=== PATIENT | male | born 1960 | race Caucasian/White ===

== ENCOUNTER 2020-06-27 12:50 | Inpatient (IN) | payer OTHER, SELFPAY ==
[2020-06-27] MEDS ORDERED: NA CHLORIDE 0.9% 500 ML ONE ×2 (15:02→16:27)
[2020-06-27] MEDS ORDERED: TRAMADOL HCL 50 MG TAB ONE (15:37)
[2020-06-27 15:52] LABS: Basophils % 0.4 % (0-1.3); Lymphocytes % 8.4 % (15.3-44.8); MPV 8.9 fL (7.6-11.3); Protime INR 1.15; RBC Red Blood Cell Count 4.84 M/uL (4.33-5.43)
--- NOTE | 2020-06-27 15:56 | RAD REPORT ---
EXAM DESCRIPTION: RAD - Chest Single View - 06/27/2020 3:22 pm CLINICAL HISTORY: Abdominal and right flank pain, SOB COMPARISON: Two view chest April 2018 TECHNIQUE: AP portable chest image was obtained 06/27/2020 3:22 pm . FINDINGS: Lungs are clear of acute finding. Small granuloma left mid lung field similar to compariso n. Heart and vasculature are normal. No measurable pleural effusion and no pneumothorax. No acute bon y abnormality seen. No acute aortic findings suspected. IMPRESSION: No acute cardiopulmonary process. No significant interval change.
[2020-06-27 16:17] LABS: ALT/SGPT 54 U/L (12-78); AST/SGOT 27 U/L (15-37); Alkaline Phosphatase 102 U/L (45-117); BUN Blood Urea Nitrogen > 150 mg/dL (7-18); Bicarbonate 9 mmol/L (21-32); Bilirubin Direct 0.1 mg/dL (0-0.2); Bilirubin Total 0.3 mg/dL (0.2-1.0); Glucose Level 101 mg/dL (74-106); Magnesium 0.6 mg/dL (1.8-2.4); NT PRO-BNP 287 pg/mL (<125); Protein, Total 8.5 g/dL (6.4-8.2); Sodium Level 130 mmol/L (136-145); Troponin (Emerg Dept Use Only) < 0.02 ng/mL (0.0-0.045)
[2020-06-27 16:19] LABS: Potassium 5.7 mmol/L (3.5-5.1)
[2020-06-27] MEDS ORDERED: NA CHLORIDE 0.9% 1,000 ML ONE ×2 (16:47→21:48)
[2020-06-27] MEDS ORDERED: NA CHLORIDE 0.9% 250 ML ONE ×2 (16:48→22:03)
--- NOTE | 2020-06-27 17:18 | RAD REPORT ---
EXAM DESCRIPTION: CT - Chest Abd Pelvis Wo Con - 06/27/2020 4:48 pm CLINICAL HISTORY: Abdominal and right flank pain with SOB COMPARISON: Chest Single View dated 06/27/2020 TECHNIQUE: During dynamic enhancement using 100 milliliters nonionic IV contrast, axial 5 millimeter thick images of the chest, abdomen and pelvis were obtained. Biphasic technique was utilized through the abdomen. No oral contrast administered. All CT scans are performed using dose optimization technique as appropriate and may include automated exposure control or mA/KV adjustment according to patient size. FINDINGS: No dense consolidation or suspicious mass lesion identifiable. In the posterolateral right lung base there is a mild bronchiectasis pattern. There is opacification of the dilated bronchi. In the surrounding parenchyma there is patchy alveolar opacification. Bronchial wall thickening is seen. No similar findings elsewhere. No pneumothorax or pleural effusion. No chest wall mass or abnormal axillary lymphadenopathy seen. Mediastinal and hilar regions show no mass or lymphadenopathy. No si gnificant cardiac finding. The liver, spleen and pancreas show no significant findings. Gallbladder and biliary tree are normal . Symmetric renal function is seen with no hydronephrosis, mass or other significant finding. No adren al abnormalities. No urinary bladder abnormalities. No dilated bowel loops or focal ball bowel wall thickening. No free air, free fluid or inflammatory stranding. Sigmoid diverticulosis present without diverticulitis. Appendix is normal. No mass or bulk y lymphadenopathy. A small fat only umbilical hernia is present. Minimal fat only left inguinal herni a. No acute bone or vascular finding. Patient has a prominent facet joint degenerative change in the lo wer lumbar spine. IMPRESSION: Posterolateral right lung base bronchiectasis with bronchitis findings. There is some pa tchy airspace disease in the same region. Viral and early bacterial pneumonias would both be possible . CT abdomen and pelvis imaging shows no emergent finding.
[2020-06-27 17:56] LABS: Ferritin 772.5 ng/mL (26-388)
[2020-06-27 17:59] LABS: C-Reactive Protein < 2.90 mg/L (<3.00)
[2020-06-27] MEDS ORDERED: Calcium Chloride 13.6 mEq (=1 gm)/100 mL NS IV ONE ×2 (18:00)
[2020-06-27] MEDS ORDERED: Magnesium Sulfate 2gm IVPB 2 G/50 ML BAG IV ONE (18:05)
[2020-06-27] MEDS ORDERED: INSULIN -REGULAR HUMAN 50 UNIT/0.5 ML ML ONE (18:05)
[2020-06-27] MEDS ORDERED: D50W 25 GM/50 ML SYRINGE/VIAL IV ONE (18:07)
[2020-06-27] MEDS ORDERED: SODIUM BICARB 50 MEQ/50ML VIAL ONE (18:07)
--- NOTE | 2020-06-27 18:19 | P.HP ---
Certification for Inpatient Patient admitted to: Inpatient With expected LOS: >2 Midnights Patient will require the following post-hospital care: None Practitioner: I am a practitioner with admitting privileges, knowledge of patient current condition, hospital course, and medical plan of care. Services: Services provided to patient in accordance with Admission requirements found in Title 42 Section 412.3 of the Code of Federal Regulations Patient History Date of Service: 06/27/20 Primary Care Provider: Dr. Shaw Reason for admission: Right flank pain, fatigue History of Present Illness: 59-year-old male with history of hypertension. Patient presented with right flank pain. Patient also reports other symptoms i ncluding fatigue, chills, fever and tremors. Patient reports that he has been feeling ill since June 06. Since that time he has been feeling extremely tired. He reported a cough at that time. Some shortness of breath noted. Patient reports chronic diarrhea. Over the past several days he has been not taking good oral intake. Patient reports right flank pain that radiates to the right chest wall. As mentioned above shortness of breath noted. Patient came to the ER for further evaluation. In the ER patient was evaluated. Patient was hypotensive with a blood pressure of 82/66. He was afebrile. Oxygen saturations around 100%. On lab white count 12.3, hemoglobin 15.6. Platelet count 287. Sodium 130, potassium 5.7. BUN greater than 150. CO2 of 9. Creatinine 4.53. With a GFR of 13. D-dimer 257. INR 1.15. Troponin less than 0.02. Magnesium low at 0.6. Pro calcitonin pending. Lactic acid pending. BNP 287. CT scan revealed machine setter lateral right lung base bronchiectasis with bronchitis. Possible early viral versus bacterial pneumonia. Abdominal exam portion unremarkable. Patient was given IV sepsis bolus in the emergency room. Blood, urine, sputum cultures obtained. Patient admitted for further evaluation. When I saw the patient ER, patient appeared dehydrated. Patient appear septic at this time. Patient overall stable. Patient takes hydrochlorothiazide, lisin opril for blood pressure. Patient also smokes. Home medications list reviewed: Yes - Past Medical/Surgical History Diabetic: No -: Hypertension -: Right inguinal hernia repair Psychosocial/ Personal History: Patient is - Family History Family History: Reviewed- Non-Contributory - Social History Smoking Status: Light Tobacco smoker (1-9 cigarettes/day) Counseled patient to stop smoking for: less than 10 minutes Smoking therapy provided: No Patient receptive to therapy: No Alcohol use: Yes CD- Drugs: No Caffeine use: Yes Place of Residence: Home Review of Systems General: Fever, Chills, Weakness, Malaise, As per HPI Eyes: Unremarkable ENT: Unremarkable Respiratory: Shortness of Breath, Sputum, As per HPI Cardiovascular: As per HPI Gastrointestinal: Abdominal Pain, Diarrhea, As per HPI Genitourinary: Unremarkable Musculoskeletal: Unremarkable Integumentary: Unremarkable Neurological: As per HPI Lymphatics: Unremarkable Physical Examination - Physical Exam General: Alert, Oriented x3, Cooperative, Mild distress HEENT: Atraumatic, Other (Dry mucous membranes) Neck: Supple Respiratory: Diminished (Slightly diminished to the right base) Cardiovascular: Normal pulses, Regular rate/rhythm Gastrointestinal: Normal bowel sounds, Soft and benign, Non-distended, No tenderness, No masses, No rebound, No guarding Musculoskeletal: No erythema, No tenderness, No warmth Integumentary: No tenderness/swelling, No erythema, No warmth, No cyanosis Neurological: Normal speech, Normal strength at 5/5 x4 extr, Normal tone, Normal affect External genitalia: No edema - Studies Laboratory Data (last 24 hrs) 06/27/20 15:15: PT 13.5 H, INR 1.15 06/27/20 15:15: WBC 12.3 H, Hgb 15.6, Hct 47.0, Plt Count 287 06/27/20 15:15: Sodium 130 L, Potassium 5.7 H*, BUN > 150 H, Creatinine 4.53 H, Glucose 101, Magnesium 0.6 L*, Total Bilirubin 0.3, AST 27, ALT 54, Alkaline Phosphatase 102 Microbiology Data (last 24 hrs): 06/27/20 15:15 Nasopharnyx Coronavirus COVID-19 PCR - Final Assessment and Plan - Plan Impression: Shortness of breath, right flank pain, chills secondary to sepsis likely related to right lower lobe pneumonia complicated with acute renal failure Acute renal failure likely volume depletion related to sepsis and medication- lisinopril/hydrochlorothiazide History of hypertension Plan: Patient we admitted for further evaluation and treatment. Sepsis protocol in place. Patient received 30 milligram/kilograms IV normal saline bolus. Will continue with IV fluids at normal saline 125 cc/hour. Will obtain blood, urine and sputum culture. COVID testing will also be done. Will start Rocephin IV, Zithromax IV. Will provide DVT prophylaxis-heparin. Patient requested nephrology-Dr. Dumas who already sees a family member. Await further recommendations from nephrology. Will consult pulmonology for further evaluation and recommendation. Will maintain sats above 93%. Will provide medication for pain and fever. Will provide medication for nausea. Respiratory to monitor closely. Pharmacy consulted to further evaluate and adjust medication. I will have physician educational assistant teacher reassess patient within 6 hr to follow and monitor sepsis protocol. Will continue to monitor lactic acid and electrolytes closely. If required patient may require repeat IV fluid boluses or vasopressor may be required. Will discontinue lisinopril and hydrochlorothiazide at this time. Will continue to reassess. Will evaluate patient tomorrow. Discharge Plan: Home Plan to discharge in: Greater than 2 days - Advance Directives Does patient have a Living Will: No Does patient have a Durable POA for Healthcare: No - Code Status/Comfort Care Code Status Assessed: Yes (Patient full code) Time Spent Managing Pts Care (In Minutes): 55
[2020-06-27] MEDS ORDERED: FENTANYL CITR 100 MCG/2 ML ONE (18:26)
--- NOTE | 2020-06-27 18:31 | EDPHYS ---
Physician Documentation [facility] Name: John Finley Age: 59 yrs Sex: Male : 1960 Arrival Date: 06/27/2020 Time: 12:57 Bed 6 Private MD: ED Physician Swapnil Limon HPI: 06/27 18:53 This 59 yrs old Male presents to ER via Ambulatory with complaints of kdr Shortness Of Breath, Dizziness, Rib Pain. 18:53 The patient has shortness of breath at rest. Onset: The symptoms/episode began/occurred kdr gradually, 2 week(s) ago. Duration: The symptoms are intermittent, This pain started as low anterior abdomen and then has drifted to the right flanks and right anterior lateral thorax over the last couple of weeks. The patient's shortness of breath is aggravated by coughing, light activity. Associated signs and symptoms: The patient has no apparent associated signs or symptoms. Severity of symptoms: At their worst the symptoms were mild moderate just prior to arrival, in the emergency department the symptoms are unchanged. The patient has not experienced similar symptoms in the past. The patient has not recently seen a physician. The patient has been also been c/o pain to his left ear for the past few weeks as well. The patient has been using an OTC wax remedy in both ears without improvement in the left ear. He has no other associated symptoms such as fever. D/w Dr. Fan for possible ENT consult. Historical: - Allergies: 13:48 No Known Allergies; ks7 - Home Meds: 13:48 Prilosec 20 mg Oral cpDR [Active]; Hydrochlorothiazide Oral 1 cap once daily [Active]; ks7 lisinopril 10 mg Oral tab once daily [Active]; - PMHx: 13:48 Hypertension; Diverticulitis; ks7 - PSHx: 13:48 Hernia repair; ks7 - Immunization history:: Adult Immunizations up to date. - Social history:: Smoking status: Patient denies any tobacco usage or history of. Exam: 18:38 ECG was reviewed by the Attending Physician. kdr Vital Signs: 13:43 BP 106 / 82; Pulse 118; Resp 18; Temp 97.7(O); Pulse Ox 100% on R/A; Weight 72.57 kg; bp Height 5 ft. 8 in. (172.72 cm); Pain 8/10; 15:46 BP 97 / 60; Pulse 88; Resp 17 S; Pulse Ox 100% on R/A; jd3 16:00 BP 88 / 45; Pulse 90; Resp 18 S; Pulse Ox 100% on R/A; aa5 16:10 BP 82 / 66; Pulse 89; Resp 20 S; Pulse Ox 100% ; aa5 16:13 aa5 16:20 BP 72 / 52; Pulse 90; Resp 22 S; Pulse Ox 100% on R/A; aa5 16:35 BP 88 / 49; Pulse 96; aa5 16:51 BP 93 / 58; Pulse 95; Resp 20 S; Temp 98.4(O); Pulse Ox 99% on R/A; aa5 18:15 BP 108 / 58; Pulse 116; Resp 22 S; Temp 98.3(O); Pulse Ox 100% on R/A; Pain 8/10; aa5 19:00 BP 92 / 58; Pulse 89; Resp 20; Pulse Ox 98% ; rr5 20:00 BP 92 / 52; Pulse 95; Resp 20; Pulse Ox 100% ; rr5 21:15 BP 94 / 65 RA; Pulse 89; Resp 19; Pulse Ox 99% ; ea 21:54 BP 104 / 59; Pulse 89; Resp 18; Temp 97.6; Pulse Ox 98% ; ea 06/28 19:00 BP 111 / 77; Pulse 80; Resp 18; Pulse Ox 97% on R/A; wh 06/27 13:43 Body Mass Index 24.33 (72.57 kg, 172.72 cm) bp 06/27 16:13 Dr. Limon notified of low BP aa5 MDM: 18:31 Patient medically screened. kdr 06/27 14:48 Order name: Basic Metabolic Panel; Complete Time: 16:30 kdr 06/27 14:48 Order name: CBC with Diff; Complete Time: 16:01 kdr 06/27 14:48 Order name: LFT's; Complete Time: 16:30 kdr 06/27 14:48 Order name: Magnesium; Complete Time: 16:30 kdr 06/27 14:48 Order name: NT PRO-BNP; Complete Time: 16:30 kdr 06/27 14:48 Order name: PT-INR; Complete Time: 16:01 kdr 06/27 14:48 Order name: Troponin (emerg Dept Use Only); Complete Time: 16:30 kdr 06/27 14:49 Order name: DD; Complete Time: 16:19 kdr 06/27 15:20 Order name: COVID-19; Complete Time: 17:32 jd3 06/27 16:35 Order name: CRP kdr 06/27 16:35 Order name: Ferritin kdr 06/27 16:35 Order name: Blood Culture Adult (2) kdr 06/27 16:41 Order name: Procalcitonin kdr 06/27 17:22 Order name: Urine Dipstick--Ancillary (enter results) bd 06/27 17:36 Order name: COVID-19 iw 06/27 19:21 Order name: SARS-COV-2 RT PCR EDMS 06/27 21:33 Order name: Lactate ea 06/27 22:10 Order name: Lactate EDMS 06/27 22:20 Order name: Blood Culture EDMS 06/28 00:37 Order name: ABG Arterial Blood Gas EDMS 06/28 02:11 Order name: Lactate EDMS 06/28 02:12 Order name: Basic Metabolic Panel EDMS 06/28 03:37 Order name: Urinalysis EDMS 06/28 03:44 Order name: Ur Protein EDMS 06/28 05:34 Order name: CBC with Automated Diff EDMS 06/28 05:54 Order name: Comprehensive Metabolic Panel EDMS 06/28 05:54 Order name: Renal Panel EDMS 06/28 05:54 Order name: Uric Acid EDMS 06/28 05:54 Order name: Creatine Phosphokinase EDMS 06/28 05:54 Order name: T4 Free EDMS 06/27 14:48 Order name: XRAY Chest (1 view); Complete Time: 16:01 kdr 06/27 14:48 Order name: EKG; Complete Time: 14:49 kdr 06/27 14:48 Order name: Cardiac monitoring; Complete Time: 14:50 kdr 06/27 14:48 Order name: EKG - Nurse/Tech; Complete Time: 15:32 kdr 06/27 14:48 Order name: IV Saline Lock; Complete Time: 15:32 kdr 06/27 14:48 Order name: Labs collected and sent; Complete Time: 15:32 kdr 06/27 14:48 Order name: O2 Per Protocol; Complete Time: 14:50 kdr 06/27 14:48 Order name: O2 Sat Monitoring; Complete Time: 14:50 kdr 06/27 16:30 Order name: Chest Abd Pelvis Wo Con; Complete Time: 17:32 EDMS 06/27 16:35 Order name: Urine Dipstick-Ancillary (obtain specimen); Complete Time: 16:48 kdr 06/28 05:54 Order name: Magnesium EDMS 06/28 05:54 Order name: Thyroid Stimulating Hormone EDTN 06/28 06:25 Order name: PTH Intact EDTN 06/28 08:24 Order name: US EDMS 06/28 08:26 Order name: RAD EDMS 06/28 19:39 Order name: UR SODIUM EDMS EC:38 Rate is 119 beats/min. Rhythm is regular, Sinus tachycardia with No ectopy. QRS [place] is kdr Normal. [place] interval is normal. QRS interval is normal. QT interval is normal. Clinical impression: NSR w/ Non-specific ST/T Changes, Abnormal EKG without significant change, and Sinus tachycardia. Administered Medications: 15:20 Drug: NS 0.9% 500 ml Route: IV; Rate: bolus; Site: right wrist; aa5 16:00 Follow up: IV Status: Completed infusion; IV Intake: 500ml aa5 15:39 Drug: traMADol 50 mg Route: PO; aa5 16:30 Follow up: Response: No adverse reaction aa5 16:19 Drug: NS 0.9% 500 ml Route: IV; Rate: bolus; Site: right wrist; aa5 16:55 Follow up: IV Status: Completed infusion; IV Intake: 500ml aa5 16:41 Drug: NS 0.9% 1250 ml Route: IV; Rate: 1 bolus; Site: right wrist; aa5 17:30 Follow up: IV Status: Completed infusion; IV Intake: 1250ml aa5 17:44 CANCELLED (Physician Discretion): Magnesium Sulfate 1 grams IVPB once over 1 hrs iw 17:44 CANCELLED (Physician Discretion): Potassium Chloride 20 mEq IV at calculated rate once; iw administer over 1-2 hours 17:45 Drug: Magnesium Sulfate 2 grams Route: IVPB; Infused Over: 2 hrs; Site: right wrist; aa5 19:18 Follow up: Response: No adverse reaction; IV Status: Completed infusion aa5 17:57 CANCELLED (Physician Discretion): Calcium Gluconate 1 grams IVPB once over 60 mins; aa5 (mix in NS 100 mL) 17:57 CANCELLED (Physician Discretion): Sodium Bicarbonate 2 amp IVP once; (50 mL); equals 50 aa5 mEq 17:58 CANCELLED (Physician Discretion): Insulin Regular Human 10 units IVP once aa5 17:58 CANCELLED (Physician Discretion): D50W 50 ml IVP once; (1 amp) aa5 18:20 Drug: fentaNYL (PF) 25 mcg Route: IVP; Site: right wrist; aa5 18:25 Follow up: Response: No adverse reaction aa5 21:33 Drug: Bowlus 5 mg-325 mg 1 tabs Route: PO; ea Disposition: 06/27/20 18:31 Hospitalization ordered by Cory Fan for Inpatient Admission. Preliminary diagnosis is Acute Renal Failure, Viral pneumonitis, Right flanks pain, Left ear pain. - Bed requested for [facility] ER HOLD. - Status is Inpatient Admission. wh - Condition is Fair. - Problem is new. - Symptoms have improved. Addendum: 07/04/2020 15:41 Addendum: EXAM: WDWN WM NAD, HEENT: NC/AT, no injury, Neck: supple, none tender, Chest: k dr no injury or deformity, COR: RRR N's s1 \T\ S2, no rubs, gallops or murmurs. Lungs: CTAB, ABD: Soft, NT, BS present in all quarters, Extrem: Pulses symmetric and equal, Neuro: A\T\ O x 3, no focal or global deficits Psych: normal, no SI/HI. Signatures: Dispatcher [employer] EDTN Litzy Waggoner RN RN dw Rittger, Kevin, MD MD kdr Williams, Irene, HEYDI SOLIZ iw Makenzie Sozua RN RN aa5 Anali Brown RN RN ea Habalo, Winsy Nikita Ramos RN RN rr5 Dorothy Hartley, RN RN ks7 Corrections: (The following items were deleted from the chart) 06/27 16:30 14:52 Chest Abdomen W/ Con+CT.RAD.BRZ ordered. EDTN EDTN 16:41 16:41 Urine Dipstick-Ancillary ordered. kdr aa5 17:44 17:43 Magnesium Sulfate 1 grams IVPB once over 1 hrs ordered. kdr iw 17:44 17:43 Potassium Chloride 20 mEq IV at calculated rate once; administer over 1-2 hours iw ordered. kdr 17:57 17:46 Calcium Gluconate 1 grams IVPB once over 60 mins; (mix in NS 100 mL) ordered. kdr aa5 17:57 17:46 Sodium Bicarbonate 2 amp IVP once; (50 mL); equals 50 mEq ordered. kdr aa5 17:57 17:57 Calcium Gluconate 1 grams IVPB once over 60 mins; (mix in NS 100 mL) ordered. aa5 aa5 17:57 17:57 Sodium Bicarbonate 2 amp IVP once; (50 mL); equals 50 mEq ordered. aa5 aa5 17:58 17:46 Insulin Regular Human 10 units IVP once ordered. kdr aa5 17:58 17:46 D50W 50 ml IVP once; (1 amp) ordered. kdr aa5 17:58 17:57 Insulin Regular Human 10 units IVP once ordered. aa5 aa5 17:58 17:58 D50W 50 ml IVP once; (1 amp) ordered. [facility] 20:42 18:31 Hospitalization Ordered by Cory Fan DO for Inpatient Admission. Preliminary diagnosis is Acute Renal Failure, Viral pneumonitis, Right flanks pain, Left ear pain. Bed requested for Telemetry/MedSurg (Inpatient). Status is Inpatient Admission. Condition is Fair. Problem is new. Symptoms have improved. [facility] 20:45 20:42 06/27/2020 18:31 Hospitalization Ordered by Cory Fan DO for Inpatient Admission. Preliminary diagnosis is Acute Renal Failure, Viral pneumonitis, Right flanks pain, Left ear pain. Bed requested for Telemetry/MedSurg (Inpatient). Status is Inpatient Admission. Condition is Fair. Problem is new. Symptoms have improved. 06/28 19:47 06/27 20:45 06/27/2020 18:31 Hospitalization Ordered by Cory Fan DO for Inpatient Admission. Preliminary diagnosis is Acute Renal Failure, Viral pneumonitis, Right flanks pain, Left ear pain. Bed requested for [facility] ER HOLD. Status is Inpatient Admission. Condition is Fair. Problem is new. Symptoms have improved.
--- NOTE | 2020-06-27 18:31 | ER ---
Nurse's Notes [facility] Name: John Finley Age: 59 yrs Sex: Male : 1960 Arrival Date: 06/27/2020 Time: 12:57 Bed 6 Private MD: Diagnosis: Acute Renal Failure, Viral pneumonitis, Right flanks pain, Left ear pain Presentation: 06/27 13:43 Chief complaint: Patient states: Pt c/o SOB x 2 weeks, pain to his back with cough and ks7 deep breathing. Pt also c/o lower abd pain x 1 week with N/V/D. Pt states he is uncomfortable, could not sleep last night. Pt also c/o L ear ache/pain. Coronavirus screen: Client denies travel out of the [place] in the last 14 days. diarrhea, fatigue, nausea, shortness of breath, Client presents with at least one sign or symptom that may indicate coronavirus-19. Standard/surgical mask placed on the client. The client denies any previous COVID testing. Ebola Screen: Patient negative for fever greater than or equal to 101.5 degrees Fahrenheit, and additional compatible Ebola Virus Disease symptoms Patient denies exposure to infectious person. Patient denies travel to an Ebola-affected area in the 21 days before illness onset. Initial Sepsis Screen: Does the patient meet any 2 criteria? No. Patient's initial sepsis screen is negative. Does the patient have a suspected source of infection? No. Patient's initial sepsis screen is negative. Risk Assessment: Do you want to hurt yourself or someone else? Patient reports no desire to harm self or others. Onset of symptoms was June 19, 2020. 13:43 Method Of Arrival: Ambulatory ks7 13:43 Acuity: SANDRA 3 ks7 Triage Assessment: 13:48 General: Appears uncomfortable, Behavior is cooperative. Pain: Complains of pain in ks7 back Pain currently is 8 out of 10 on a pain scale. Quality of pain is described as aching, Aggravated by. Respiratory: Reports shortness of breath pain with respiration Onset: The symptoms/episode began/occurred on going for 2 weeks, the patient has moderate shortness of breath. Historical: - Allergies: 13:48 No Known Allergies; ks7 - Home Meds: 13:48 Prilosec 20 mg Oral cpDR [Active]; Hydrochlorothiazide Oral 1 cap once daily [Active]; ks7 lisinopril 10 mg Oral tab once daily [Active]; - PMHx: 13:48 Hypertension; Diverticulitis; ks7 - PSHx: 13:48 Hernia repair; ks7 - Immunization history:: Adult Immunizations up to date. - Social history:: Smoking status: Patient denies any tobacco usage or history of. Screenin:00 Abuse screen: Denies threats or abuse. Nutritional screening: No deficits noted. aa5 Tuberculosis screening: No symptoms or risk factors identified. Fall Risk None identified. Assessment: 14:00 General: Appears comfortable, Behavior is calm, cooperative. Pain: Complains of pain in aa5 left ear and lower abdomen Pain does not radiate. Pain currently is 8 out of 10 on a pain scale. Quality of pain is described as aching, Pain began 1-2 weeks ago Is intermittent. Neuro: Level of Consciousness is awake, alert, obeys commands, Oriented to person, place, time, situation. Cardiovascular: Heart tones S1 S2 present Rhythm is sinus tachycardia. Respiratory: Reports shortness of breath on exertion slight cough Airway is patent Respiratory effort is even, unlabored, Respiratory pattern is regular, symmetrical, Breath sounds are clear bilaterally. GI: Abdomen is round non-distended, Bowel sounds present X 4 quads. Abd is soft and non tender X 4 quads. Reports diarrhea, nausea, vomiting. : No signs and/or symptoms were reported regarding the genitourinary system. EENT: Reports pain in left ear. Derm: Skin is pink, warm \\T\\ dry. Musculoskeletal: Range of motion: intact in all extremities. 15:00 Reassessment: Patient is alert, oriented x 3, equal unlabored respirations, skin aa5 warm/dry/pink. Warm blankets provided. Pt appears to be shaking, pt states "I am just cold" . 16:13 Reassessment: Patient is alert, oriented x 3, equal unlabored respirations, skin aa5 warm/dry/pink. 16:30 Reassessment: Patient is alert, oriented x 3, equal unlabored respirations, skin aa5 warm/dry/pink. Pt reports ear pain has improved. . 16:41 Reassessment: Pt to CT via stretcher . aa5 16:50 Reassessment: Patient is alert, oriented x 3, equal unlabored respirations, skin aa5 warm/dry/pink. Pt back from CT scan. 18:15 Reassessment: Pt requesting pain medication, Dr. Limon notified. . aa5 18:15 Reassessment: Patient is alert, oriented x 3, equal unlabored respirations, skin aa5 warm/dry/pink. 18:35 Reassessment: Dinner tray given to pt, pt tolerating well. . aa5 18:35 Reassessment: Patient is alert, oriented x 3, equal unlabored respirations, skin aa5 warm/dry/pink. Patient states symptoms have improved. 19:15 General: Appears in no apparent distress. comfortable, Behavior is calm, cooperative, rr5 appropriate for age. 19:15 Neuro: Level of Consciousness is awake, alert, obeys commands, Oriented to person, rr5 place, time, situation. Cardiovascular: Capillary refill < 3 seconds Patient's skin is warm and dry. Respiratory: Airway is patent Respiratory effort is even, unlabored, Respiratory pattern is regular, symmetrical. Derm: Skin is intact, is healthy with good turgor, Skin temperature is warm. Musculoskeletal: Circulation, motion, and sensation intact. Capillary refill < 3 seconds. 20:16 Reassessment: Nadeen (daughter) [phone]. ea 21:20 Reassessment: Patient is alert, oriented x 3, equal unlabored respirations, skin ea warm/dry/pink. Pt complaining of pain to left hip, hospitalist at bedside, verbal order obtained for Arg[place] 5. 21:26 Reassessment: Verbal order obtained for stat lactate and NS one liter x 1. ea 22:00 Reassessment: Patient appears in no apparent distress at this time. Patient is alert, rr5 oriented x 3, equal unlabored respirations, skin warm/dry/pink. patient admitted ER hold. Vital Signs: 13:43 BP 106 / 82; Pulse 118; Resp 18; Temp 97.7(O); Pulse Ox 100% on R/A; Weight 72.57 kg; bp Height 5 ft. 8 in. (172.72 cm); Pain 8/10; 15:46 BP 97 / 60; Pulse 88; Resp 17 S; Pulse Ox 100% on R/A; jd3 16:00 BP 88 / 45; Pulse 90; Resp 18 S; Pulse Ox 100% on R/A; aa5 16:10 BP 82 / 66; Pulse 89; Resp 20 S; Pulse Ox 100% ; aa5 16:13 aa5 16:20 BP 72 / 52; Pulse 90; Resp 22 S; Pulse Ox 100% on R/A; aa5 16:35 BP 88 / 49; Pulse 96; aa5 16:51 BP 93 / 58; Pulse 95; Resp 20 S; Temp 98.4(O); Pulse Ox 99% on R/A; aa5 18:15 BP 108 / 58; Pulse 116; Resp 22 S; Temp 98.3(O); Pulse Ox 100% on R/A; Pain 8/10; aa5 19:00 BP 92 / 58; Pulse 89; Resp 20; Pulse Ox 98% ; rr5 20:00 BP 92 / 52; Pulse 95; Resp 20; Pulse Ox 100% ; rr5 21:15 BP 94 / 65 RA; Pulse 89; Resp 19; Pulse Ox 99% ; ea 21:54 BP 104 / 59; Pulse 89; Resp 18; Temp 97.6; Pulse Ox 98% ; ea 06/28 19:00 BP 111 / 77; Pulse 80; Resp 18; Pulse Ox 97% on R/A; wh 06/27 13:43 Body Mass Index 24.33 (72.57 kg, 172.72 cm) bp 06/27 16:13 Dr. Limon notified of low BP aa5 ED Course: 12:57 Patient arrived in ED. as 12:58 Swapnil Limon MD is Attending Physician. kdr 13:46 Triage completed. ks7 13:48 Arm band placed on right wrist. ks7 14:00 Patient has correct armband on for positive identification. Placed in gown. Bed in low aa5 position. Call light in reach. Side rails up X2. 14:03 Makenzie Souza, HEYDI is Primary Nurse. aa5 15:10 Missed attempt(s): 20 gauge in right forearm. Bleeding controlled, band aid applied, aa5 catheter tip intact. 15:15 Initial lab(s) drawn, by me, sent to lab. Inserted saline lock: 22 gauge in right aa5 wrist, using aseptic technique. Blood collected. 15:21 XRAY Chest (1 view) In Process Unspecified. EDMS 16:48 Chest Abd Pelvis Wo Con In Process Unspecified. EDMS 18:29 Cory Fan DO is Hospitalizing Provider. kdr 19:05 Report given to HEYDI Shelton. aa5 20:52 No provider procedures requiring assistance completed. Patient admitted, IV remains in rr5 place. intact, No redness/swelling at site. 06/28 09:06 Primary Nurse role handed off by Makenzie Souza, RN bp 09:06 Demario Judge, RN is Primary Nurse. bp 19:27 Inserted saline lock: 20 gauge in left antecubital area, using aseptic technique. dh4 Administered Medications: 06/27 15:20 Drug: NS 0.9% 500 ml Route: IV; Rate: bolus; Site: right wrist; aa5 16:00 Follow up: IV Status: Completed infusion; IV Intake: 500ml aa5 15:39 Drug: traMADol 50 mg Route: PO; aa5 16:30 Follow up: Response: No adverse reaction aa5 16:19 Drug: NS 0.9% 500 ml Route: IV; Rate: bolus; Site: right wrist; aa5 16:55 Follow up: IV Status: Completed infusion; IV Intake: 500ml aa5 16:41 Drug: NS 0.9% 1250 ml Route: IV; Rate: 1 bolus; Site: right wrist; aa5 17:30 Follow up: IV Status: Completed infusion; IV Intake: 1250ml aa5 17:44 CANCELLED (Physician Discretion): Magnesium Sulfate 1 grams IVPB once over 1 hrs iw 17:44 CANCELLED (Physician Discretion): Potassium Chloride 20 mEq IV at calculated rate once; iw administer over 1-2 hours 17:45 Drug: Magnesium Sulfate 2 grams Route: IVPB; Infused Over: 2 hrs; Site: right wrist; aa5 19:18 Follow up: Response: No adverse reaction; IV Status: Completed infusion aa5 17:57 CANCELLED (Physician Discretion): Calcium Gluconate 1 grams IVPB once over 60 mins; aa5 (mix in NS 100 mL) 17:57 CANCELLED (Physician Discretion): Sodium Bicarbonate 2 amp IVP once; (50 mL); equals 50 aa5 mEq 17:58 CANCELLED (Physician Discretion): Insulin Regular Human 10 units IVP once aa5 17:58 CANCELLED (Physician Discretion): D50W 50 ml IVP once; (1 amp) aa5 18:20 Drug: fentaNYL (PF) 25 mcg Route: IVP; Site: right wrist; aa5 18:25 Follow up: Response: No adverse reaction aa5 21:33 Drug: Argyle 5 mg-325 mg 1 tabs Route: PO; ea Intake: 16:00 IV: 500ml; Total: 500ml. aa5 16:55 IV: 500ml; Total: 1000ml. aa5 17:30 IV: 1250ml; Total: 2250ml. aa5 Output: 16:35 Urine: 250ml (Voided); Total: 250ml. aa5 17:30 Urine: 500ml (Voided); Total: 750ml. aa5 Outcome: 18:31 Decision to Hospitalize by Provider. kdr 21:21 Instructed on the need for admit. ea 21:55 Admitted to ER Hold. [facility] for further documentation. ea 21:55 Condition: stable 06/28 19:46 Admitted to ICU accompanied by nurse, via stretcher, room 11, with chart, Report called to Terry Templeton RN Condition: stable Instructed on the need for admit. 19:47 Patient left the ED. Signatures: Dispatcher [employer] EDMS Swapnil Limon MD MD kdr Martinez, Amelia as Calderon, Audri, RN RN aa5 Anali Brown, RN Pavan Brown ea Bulmaro Marques RN RN jDemario Wolfe RN Nikita Daniels RN RN rr5 Warren Brown Dorothy Blake RN RN ks7 Williams, Irene RN iw Corrections: (The following items were deleted from the chart) 06/27 13:49 13:43 Chief complaint: Patient states: Pt c/o SOB x 2 weeks, pain to his back with ks7 cough and deep breathing. Pt also c/o lower abd pain x 1 week with N/V/D. Pt states he is uncomfortable, could not sleep last night. ks7 15:41 15:00 NS 0.9% 500 ml IV at bolus in right wrist aa5 aa5 15:41 15:00 Inserted saline lock: 22 gauge in right wrist, using aseptic technique. Blood aa5 collected. aa5 :41 15:00 Initial lab(s) drawn, by me, sent to lab. aa5 aa5 21:21 21:15 BP 94 / 65; Pulse 89bpm; Resp 19bpm; Pulse Ox 99%; ea ea 06/28 07:28 08 13:43 BP 106 / 82; Pulse 118bpm; Resp 18bpm; Pulse Ox 100% RA; Temp 97.7F Oral; bp 72.57 kg; Height 5 ft. 8 in.; BMI: 24.3; Pain 8/10; ks7
[2020-06-27 18:36] LABS: Urine Blood TRACE (NEG); Urine Glucose NEGATIVE (NEG); Urine Protein NEGATIVE (NEG); Urine Specific Gravity 1.015 (1.005-1.030)
--- NOTE | 2020-06-27 21:24 | P.INFCA ---
Sepsis Focused Assessment - Sepsis Screen Result Severe Sepsis: Positive Septic Shock: Negative - Evaluation Current stage of sepsis: Severe sepsis - Vital Signs Reviewed: Yes Temperature: 97.6 F Heart rate: 85 Blood Pressure: 104/59 Respiratory Rate: 18 O2 Sat by Pulse Oximetry: 98 (RA) - Examination Date exam was performed: 06/27/20 Time exam was performed: 22:00 Heart: Regular rate/rhythm Lungs: Clear bilaterally Peripheral pulses: 3+ Normal Peripheral pulse location: Posterior tibial Capillary refill: <2 Seconds Skin examination: Normal turgor
[2020-06-27] MEDS: CEFTRIAXONE/SWI 1gm 1 GM/10 ML SYR IV SCH (21:30)
[2020-06-27] MEDS ORDERED: HYDROCODONE/APAP 5/325 MG TAB ONE (21:31)
[2020-06-27] MEDS: AZITHROMYCIN IV 500 MG in NA CHLORIDE 0.9% 250 ML IVPB SCH (21:40)
[2020-06-27] MEDS ORDERED: HYDRALAZINE HCL 20 MG/ML VIAL IV PRN (21:40)
[2020-06-27] MEDS: NA CHLORIDE 0.9% 1,000 ML IV SCH (21:40)
[2020-06-27] MEDS: HEPARIN 5000 UNIT/ML 1 ML VIAL SQ SCH (21:40)
[2020-06-27] MEDS ORDERED: CEFTRIAXONE/SWI 1gm 1 GM/10 ML SYR ONE (22:03)
[2020-06-27] MEDS ORDERED: AZITHROMYCIN 500 MG INJ IVPB ONE (22:03)
[2020-06-27] MEDS ORDERED: MAGNESIUM 50% 3 GM in NA CHLORIDE 0.9% 100 ML IV ONE (22:48)
[2020-06-27] MEDS ORDERED: WATER FOR INJ,STERILE 1,000 ML with NA BICARB 8.4% 150 MEQ IV SCH ×2 (23:00)
[2020-06-28 00:34] LABS: Arterial Blood Carboxyhemoglob 0.5 % (0-1.5); Blood Gas Oxyhemoglobin 96.2 % (94-97); Blood O2 Saturation 97.7 % (92-98.5)
[2020-06-28] MEDS ORDERED: SODIUM BICARB 50 MEQ/50ML VIAL ONE (02:02)
[2020-06-28 02:11] LABS: Potassium 5.1 mmol/L (3.5-5.1)
[2020-06-28] MEDS ORDERED: Magnesium Sulfate 2gm IVPB 2 G/50 ML BAG IV ONE (02:26)
[2020-06-28] MEDS ORDERED: NACHLORIDE 0.45% 1,000 ML IV ONE (02:44)
[2020-06-28] MEDS ORDERED: NACHLORIDE 0.45% 1,000 ML with NA BICARB 8.4% 75 MEQ IV SCH ×2 (03:00)
[2020-06-28 03:36] LABS: Urine Appearance CLEAR; Urine Bilirubin NEGATIVE (NEG); Urine Blood NEGATIVE (NEG); Urine Color YELLOW; Urine Glucose NEGATIVE (NEG); Urine Protein NEGATIVE (NEG); Urine Urobilinogen 0.2 mg/dL (0.2-1.0); Urine pH 5.5 (5.0-7.0)
[2020-06-28 03:37] LABS: Urine Microscopic Reflex NO UMIC
[2020-06-28 03:43] LABS: Urine Protein/Creatinine Ratio 0.21 ratio (<0.15)
[2020-06-28] MEDS: TRAMADOL HCL 50 MG TAB PO PRN (03:54)
[2020-06-28] MEDS ORDERED: TRAMADOL HCL 50 MG TAB ONE (04:01)
[2020-06-28 05:28] LABS: Absolute Lymphocytes (CBC) 1.2 K/uL (0.7-4.9); Basophils % 0.5 % (0-1.3); Hematocrit 42.7 % (39.6-49.0); Lymphocytes % 15.5 % (15.3-44.8)
[2020-06-28] MEDS: NA CHLORIDE 0.9% 1,000 ML IV SCH (05:40)
[2020-06-28 05:53] LABS: Albumin 3.4 g/dL (3.4-5.0); Bilirubin Total 0.3 mg/dL (0.2-1.0); Magnesium 1.9 mg/dL (1.8-2.4); Phosphorus 2.9 mg/dL (2.5-4.9); Potassium 5.2 mmol/L (3.5-5.1); Protein, Total 7.3 g/dL (6.4-8.2); Thyroid Stimulating Hormone 0.352 uIU/mL (0.360-3.740); Uric Acid 8.1 mg/dL (3.5-7.2)
[2020-06-28] MEDS ORDERED: NA CHLORIDE 0.9% 500 ML IV ONE (06:14)
--- NOTE | 2020-06-28 07:09 | EKG ---
Test Date: 2020-06-27 Test Time: 15:04:35 Veterinary Virus Serum Inspector: FRANCIS MEASUREMENT RESULTS: Intervals: Rate: 119 [place]: 148 QRSD: 80 QT: 304 QTc: 427 [place]: P: 70 AZ: 148 QRS: -32 T: 73 INTERPRETIVE STATEMENTS: Sinus tachycardia with frequent and consecutive premature ventricular complexes Left axis deviation Abnormal ECG Compared to ECG 05/12/2018 10:12:47 Ventricular premature complex(es) now present Left-axis deviation now present Sinus rhythm no longer present Electronically Signed On 06-28-20 07:08:23 CDT by Tj Mendoza
[2020-06-28 07:37] VITALS: BMI 24.3
--- NOTE | 2020-06-28 08:24 | RAD REPORT ---
EXAM DESCRIPTION: US - Renal Ultrasound-Complete - 06/28/2020 7:40 am CLINICAL HISTORY: Acute renal insufficiency COMPARISON: June 27, 2020 cat scan FINDINGS: The right kidney measures 13 cm with an increased echotexture. The left kidney measures 13 cm with an increased echotexture. A 8 millimeter cyst Hydronephrosis is not seen. No gross abnormality of bladder is seen Cholelithiasis IMPRESSION: Mildly increased renal echotexture consistent with parenchymal disease
--- NOTE | 2020-06-28 08:25 | RAD REPORT ---
EXAM DESCRIPTION: Sandra Mora And Krista (2 Views)06/28/2020 6:37 am CLINICAL HISTORY: Cough COMPARISON: June 27, 2020 FINDINGS: No change in the mild right basilar lung opacity The left lung appears clear of acute infiltrate. The heart is normal size IMPRESSION: No change in a mild right basilar pneumonia
[2020-06-28] MEDS ORDERED: NA CHLORIDE 0.9% 50 ML IV ONE (08:39)
[2020-06-28] MEDS ORDERED: CEFTRIAXONE/SWI 1gm 1 GM/10 ML SYR ONE (08:39)
[2020-06-28] MEDS ORDERED: HEPARIN 5000 UNIT/ML 1 ML VIAL ONE ×2 (08:39→22:00)
[2020-06-28] MEDS: AZITHROMYCIN IV 500 MG in NA CHLORIDE 0.9% 250 ML IVPB SCH (09:00)
[2020-06-28] MEDS: HEPARIN 5000 UNIT/ML 1 ML VIAL SQ SCH ×2 (09:00→22:00)
[2020-06-28] MEDS: CEFTRIAXONE/SWI 1gm 1 GM/10 ML SYR IV SCH (09:00)
[2020-06-28] MEDS ORDERED: HYDROCODONE/APAP 7.5/325 MG TAB ONE ×3 (10:10→22:01)
[2020-06-28] MEDS: HYDROCODONE/APAP 7.5/325 MG TAB PO PRN ×3 (10:15→22:03)
[2020-06-28] MEDS: NACHLORIDE 0.45% 1,000 ML with NA BICARB 8.4% 75 MEQ IV SCH ×4 (11:00→19:36)
--- NOTE | 2020-06-28 11:24 | P.CNS ---
Date of Consult: 06/28/20 Reason for Consult: Shortness of breath Primary Care Provider: Dr. Shaw Chief Complaint: Right flank pain, fatigue History of Present Illness: Patient is 59 years of age initially started having some abdominal cramps that resolved came in with acute renal failure with shortness of breath he shortness breath is also resolved no history of smoking denies any fever chills nunez virus test is negative he is feeling better is renal function is improving Allergies No Known Allergies Allergy (Unverified 06/27/20 20:47) - Past Medical/Surgical History Diabetic: No -: Hypertension -: diverticultis -: Right inguinal hernia repair Psychosocial/ Personal History: Patient is - Social History Alcohol use: Yes CD- Drugs: No Caffeine use: No Place of Residence: Home Review of Systems 10-point ROS is otherwise unremarkable Physical Examination Temp Pulse Resp BP Pulse Ox 98.7 F 92 H 14 88/68 L 98 06/28/20 08:00 06/28/20 09:00 06/28/20 09:00 06/28/20 09:00 06/28/20 09:00 General: Alert, Oriented x3 Neck: Supple Respiratory: Clear to auscultation bilaterally Cardiovascular: No edema, Regular rate/rhythm Laboratory Data (last 24 hrs) 06/27/20 15:15: PT 13.5 H, INR 1.15 06/27/20 15:15: WBC 12.3 H, Hgb 15.6, Hct 47.0, Plt Count 287 06/27/20 15:15: Sodium 130 L, Potassium 5.7 H*, BUN > 150 H, Creatinine 4.53 H, Glucose 101, Magnesium 0.6 L*, Total Bilirubin 0.3, AST 27, ALT 54, Alkaline Phosphatase 102 - Problems (1) Renal failure Current Visit: Yes Status: Acute Plan: Patient is 59 years of age admitted with acute renal failure nunez virus tests is negative chest x-ray clear see neurological tests are pending renal function improving saturation satisfactory blood pressure is little low Dc Zithromax and Rocephin urinary sodium and creatinine patient was hypotensive on admission patient was on hydrochlorothiazide and lisinopril it could be a side effect of the medication continue with IV fluids trial of Decadron for 24 hr serum cortisol level cultures are pending main mm in inflammatory changes in the right lower lobe virus infection CT of the abdomen reviewed
[2020-06-28] MEDS: dexAMETHasone 4 MG/ML VIAL IV SCH ×2 (12:00→18:00)
[2020-06-28] MEDS: ONDANSETRON 4 MG/2 ML VIAL IV PRN ×2 (12:20→19:47)
[2020-06-28] MEDS ORDERED: dexAMETHasone 4 MG/ML VIAL ONE ×2 (12:24→19:07)
[2020-06-28] MEDS ORDERED: ONDANSETRON 4 MG/2 ML VIAL ONE ×2 (12:28→19:46)
--- NOTE | 2020-06-28 12:39 | ECHO ---
HEIGHT: 5 ft 8 in WEIGHT: 160 lb 0 oz DATE OF STUDY: 06/28/[address]: Cory Fan DO 2-DIMENSIONAL: YES M.MODE: YES DOPPLER: YES COLOR FLOW: YES TDS: YES PORTABLE: NO DEFINITY: NO BUBBLE STUDY: NO DIAGNOSIS: SEPSIS CARDIAC HISTORY: CATHERIZATION: NO SURGERY: NO PROSTHETIC VALVE: NO PACEMAKER: NO MEASUREMENTS (cm) DIASTOLIC (NORMALS) SYSTOLIC (NORMALS) IVSd 0.9 (0.6-1.2) LA Diam 2.3 (1.9-4.0) LVEF 73% LVIDd 4.0 (3.5-5.7) LVIDs 2.3 (2.0-3.5) %FS 41% LVPWd 0.9 (0.6-1.2) Ao Diam 3.6 (2.0-3.7) 2 DIMENSIONAL ASSESSMENT: RIGHT ATRIUM: NORMAL LEFT ATRIUM: NORMAL RIGHT VENTRICLE: NORMAL LEFT VENTRICLE: NORMAL TRICUSPID VALVE: NORMAL MITRAL VALVE: NORMAL PULMONIC VALVE: NORMAL AORTIC VALVE: NORMAL PERICARDIAL EFFUSION: NONE AORTIC ROOT: NORMAL LEFT VENTRICULAR WALL MOTION: NORMAL. DOPPLER/COLOR FLOW: NORMAL. COMMENTS: TECHNICALLY DIFFICULT STUDY. GROSSLY NORMAL LEFT VENTRICULAR SIZE AND FUNCTION. NO VEGETATION. NO EFFUSION. TECHNOLOGIST: JUSTIN GAMINO
--- NOTE | 2020-06-28 12:45 | P.PN ---
Subjective Date of Service: 06/28/20 Primary Care Provider: Dr. Shaw Chief Complaint: Right flank pain, fatigue Subjective: Other (Patient feels better. Blood pressure is still slightly low.) Physical Examination - Vital Signs Temperature: 98.7 F Blood Pressure: 88/68 Pulse: 92 Respirations: 14 Pulse Ox (%): 98 - Physical Exam General: Alert, In no apparent distress, Oriented x3, Cooperative HEENT: Atraumatic Neck: Supple Respiratory: Clear to auscultation bilaterally Cardiovascular: Normal pulses, Regular rate/rhythm Gastrointestinal: Normal bowel sounds, No tenderness, No masses, No rebound, No guarding Neurological: Normal speech, Normal strength at 5/5 x4 extr, Normal tone, Normal affect - Studies Laboratory Data (last 24 hrs) 06/27/20 15:15: PT 13.5 H, INR 1.15 06/27/20 15:15: WBC 12.3 H, Hgb 15.6, Hct 47.0, Plt Count 287 06/27/20 15:15: Sodium 130 L, Potassium 5.7 H*, BUN > 150 H, Creatinine 4.53 H, Glucose 101, Magnesium 0.6 L*, Total Bilirubin 0.3, AST 27, ALT 54, Alkaline Phosphatase 102 Microbiology Data (last 24 hrs): 06/27/20 17:10 Blood - Blood Anaerobic Blood Culture - Final 06/27/20 17:28 Blood - Blood Anaerobic Blood Culture - Final 06/27/20 15:15 Nasopharnyx Coronavirus COVID-19 PCR - Final Medications List Reviewed: Yes Assessment & Plan Discharge Plan: Home Plan to discharge in: 48 Hours Physician Review Additional Text: Impression: Shortness of breath, right flank pain, chills secondary to sepsis likely related to right lower lobe pneumonia complicated with acute renal failure Acute renal failure likely volume depletion related to sepsis and medication- lisinopril/hydrochlorothiazide History of hypertension Plan: Will continue with antibiotic therapy. Patient to be given IV fluid bolus this morning. Case discussed with pulmonology. Continue to monitor closely. Nephrology to adjust IV fluids due to metabolic acidosis. Patient to be started on bicarb drip. Will provide DVT prophylaxis. Continue to monitor closely. Maintain sats above 93%. Continue to hold blood pressure medication. Continue to hold lisinopril hydrochlorothiazide. Anticipate improvement over the next 48 hr. Time Spent Managing Pts Care (In Minutes): 55
--- NOTE | 2020-06-28 12:51 | P.CNS ---
Date of Consult: 06/28/20 Reason for Consult: Nataly , acidosis Primary Care Provider: Dr. Shaw Chief Complaint: Right flank pain, fatigue History of Present Illness: A 59 Y/o man with PMHX of HTN on lisinopril/HCTZ, Hx of nephrolithiasis and Hx of chronic diarrhea pt was admitted for abdominal pain pt had chronic diarrhea for 2 years, he presented for abdominal pain, feeling tires pt denied vomiting, NSAID or contrast exposure in ER pt was hypotensive BP 82/66. ,Sodium 130, potassium 5.7. BUN greater than 150. CO2 of 9. Creatinine 4.53. No chest pain, palpitation, nausea or vomiting Physical exam general: AAOX3, NAD , obese Neck; Supple, No elevated JVD hear: RRR, normal S1,2 no murmur or rub Chest: CTAB, no rales or wheezes Abdomen: Soft , Nt Extremities No edema or ulcer A/P NATALY due to dehydration Cr baseline ~1.0 in 2018 will switch IV to bicarb drip US: no hydro f/u serology W/U HAGMA likely due to NATALY will switch to Bicarb drip will check serum osmol , lactic acid HTN Bp on low side now off HCTZ and lisinopril TSH 0.3, will check cortisol Hypocalcemia and magnesemia replace as needed Allergies No Known Allergies Allergy (Unverified 06/27/20 20:47) - Past Medical/Surgical History Diabetic: No -: Hypertension -: diverticultis -: Right inguinal hernia repair Psychosocial/ Personal History: Patient is - Social History Alcohol use: Yes CD- Drugs: No Caffeine use: No Place of Residence: Home Physical Examination Temp Pulse Resp BP Pulse Ox 98.7 F 92 H 14 88/68 L 98 06/28/20 12:45 06/28/20 12:45 06/28/20 12:45 06/28/20 12:45 06/28/20 12:45 Laboratory Data (last 24 hrs) 06/27/20 15:15: PT 13.5 H, INR 1.15 06/27/20 15:15: WBC 12.3 H, Hgb 15.6, Hct 47.0, Plt Count 287 06/27/20 15:15: Sodium 130 L, Potassium 5.7 H*, BUN > 150 H, Creatinine 4.53 H, Glucose 101, Magnesium 0.6 L*, Total Bilirubin 0.3, AST 27, ALT 54, Alkaline Phosphatase 102
[2020-06-28] MEDS ORDERED: CALCIUM GLUC 10% INJ 9.3 MEQ in NA CHLORIDE 0.9% 100 ML IV ONE (13:03)
[2020-06-28] MEDS ORDERED: PANTOPRAZOLE 40MG TABLET PO ONE (21:39)
[2020-06-28 22:52] LABS: Rheumatoid Factor NEG (NEG)
[2020-06-29] MEDS: dexAMETHasone 4 MG/ML VIAL IV SCH ×5 (00:49→23:40)
[2020-06-29] MEDS ORDERED: dexAMETHasone 4 MG/ML VIAL ONE ×3 (00:49→11:35)
[2020-06-29] MEDS: ACETAMINOPHEN 500 MG TAB PO PRN (00:55)
[2020-06-29] MEDS ORDERED: ACETAMINOPHEN 500 MG TAB ONE (01:05)
[2020-06-29] MEDS ORDERED: HYDROCODONE/APAP 7.5/325 MG TAB ONE ×3 (03:27→11:35)
[2020-06-29] MEDS: NACHLORIDE 0.45% 1,000 ML with NA BICARB 8.4% 75 MEQ IV SCH ×2 (03:31)
[2020-06-29] MEDS: HYDROCODONE/APAP 7.5/325 MG TAB PO PRN ×3 (05:04→20:08)
[2020-06-29 05:23] LABS: Absolute Lymphocytes (CBC) 0.6 K/uL (0.7-4.9); Basophils % 0.2 % (0-1.3); Hematocrit 39.2 % (39.6-49.0); Lymphocytes % 7.5 % (15.3-44.8); MPV 8.8 fL (7.6-11.3); RBC Red Blood Cell Count 4.09 M/uL (4.33-5.43)
[2020-06-29 05:53] LABS: Albumin 3.3 g/dL (3.4-5.0); Bilirubin Total 0.4 mg/dL (0.2-1.0); Phosphorus 1.5 mg/dL (2.5-4.9); Potassium 5.4 mmol/L (3.5-5.1); Protein, Total 7.1 g/dL (6.4-8.2)
[2020-06-29 05:58] LABS: Magnesium 1.1 mg/dL (1.8-2.4)
[2020-06-29] MEDS ORDERED: PANTOPRAZOLE 40MG TABLET PO ONE (06:11)
[2020-06-29] MEDS: PANTOPRAZOLE 40MG TABLET PO SCH (06:11)
[2020-06-29] MEDS ORDERED: Magnesium Sulfate 2gm IVPB 2 G/50 ML BAG IV ONE ×2 (06:25→08:16)
[2020-06-29] MEDS: HEPARIN 5000 UNIT/ML 1 ML VIAL SQ SCH ×2 (08:12→20:09)
[2020-06-29] MEDS ORDERED: NACHLORIDE 0.45% 1,000 ML IV ONE (08:15)
[2020-06-29] MEDS ORDERED: HEPARIN 5000 UNIT/ML 1 ML VIAL ONE (08:15)
--- NOTE | 2020-06-29 11:21 | P.PN ---
Subjective Date of Service: 06/29/20 Primary Care Provider: Dr. Shaw Chief Complaint: Right flank pain, fatigue Subjective: Improving, Other (Patient reported left ear pain.) Physical Examination - Vital Signs Temperature: 98 F Blood Pressure: 109/70 Pulse: 97 Respirations: 21 Pulse Ox (%): 98 - Physical Exam General: Alert HEENT: Other (Increased wax noted to the left ear) Neck: Supple Respiratory: Clear to auscultation bilaterally, Normal air movement Cardiovascular: Normal pulses, Regular rate/rhythm Gastrointestinal: Normal bowel sounds, Soft and benign, Non-distended Neurological: Normal speech, Normal strength at 5/5 x4 extr, Normal tone, Normal affect - Studies Microbiology Data (last 24 hrs): 06/27/20 17:28 Blood - Blood Anaerobic Blood Culture - Final 06/27/20 17:10 Blood - Blood Anaerobic Blood Culture - Final Medications List Reviewed: Yes Assessment & Plan Discharge Plan: Home Plan to discharge in: 48 Hours Physician Review Additional Text: Impression: Shortness of breath, right flank pain, chills secondary to sepsis likely related to right lower lobe pneumonia complicated with acute renal failure Acute renal failure likely volume depletion related to sepsis and medication- lisinopril/hydrochlorothiazide and noted hyperkalemia Decrease cortisol suspect adrenal insufficiency History of hypertension Increased cerumen to the left ear Plan: Continue IV antibiotic therapy. Case discussed with pulmonology. Will recheck chest x-ray today. Will discuss with nephrology about IV fluids. Patient on bicarb drip due to acute renal failure. Renal function improved but hyperkalemia noted. May need to provide medication for this. Will discuss with nephrology 1st. Patient with earache. Increased cerumen noted. Cerumen removed as best possible with improvement in symptom. Patient with low cortisol all. Suspect adrenal insufficiency. Patient remains on IV Decadron. Patient will have ACTH stimulation test done on Wednesday. Continue to monitor closely. Maintain sats above 93%. Encourage ambulation. Continue monitor closely. Anticipate discharge as early as Wednesday. Time Spent Managing Pts Care (In Minutes): 55
--- NOTE | 2020-06-29 12:18 | RAD REPORT ---
EXAM DESCRIPTION: RAD - Chest Pa And Lat (2 Views) - 06/29/2020 9:36 am CLINICAL HISTORY: pneumonia Chest pain. COMPARISON: Chest Pa And Lat (2 Views) dated 06/28/2020; Chest Single View dated 06/27/2020; Chest Pa And Lat (2 Views) dated 05/12/2018; Chest Abd Pelvis Wo Con dated 06/27/2020 FINDINGS: The lungs are grossly clear. The heart is normal in size. No displaced fractures.
[2020-06-29] MEDS ORDERED: FUROSEMIDE 20 MG/ 2ML VIAL IV ONE (13:00)
[2020-06-29] MEDS: D5 0.45 NS 1,000 ML IV SCH (14:04)
--- NOTE | 2020-06-29 15:28 | PN ---
Date of Progress Note: 06/29/2020 Subjective: The patient was admitted with acute kidney injury secondary to gastrointestinal loss, dehydration, had severe acidosis with hyperkalemia. The patient was started on IV hydration. Kidney function has been improved significantly. Physical Examination: General: When I saw the patient, patient lying in bed. Vital Signs: Blood pressure 109/70, pulse of 21, afebrile. Chest: Faint rales bilateral with wheezing. Heart: S1 and S2, regular. Abdomen: Soft, nontender. Extremities: No edema. Laboratory Data: WBC 7.9, H and H 13.4/39.2, platelets 235. Sodium 139, potassium 5.4, bicarb 21, BUN 45, creatinine 1.1, GFR of 63, calcium 6.3, phosphorus 1.5, magnesium 1.1. PTH 221. Current Medications: The patient on include: 1. Hydralazine. 2. Sodium bicarb. 3. Pantoprazole. 4. Magnesium sulfate. Assessment/plan: 1. Acute kidney injury secondary to prerenal, secondary to gastrointestinal loss, superimposed with FARRAH inhibitor and hydrochlorothiazide, recover, resolved. Looked to me slightly on the wet side with mild wheezing. I am going to go ahead and discontinue bicarb drip. We will give the patient single dose of Lasix and we will follow up the patient. 2. Hyperkalemia secondary to renal failure and FARRAH inhibitor, recover. We will give another dose of Lasix. 3. Hypomagnesemia. We will supplement. 4. Hypophosphatemia. I am going to hold on the supplement to avoid worsening hyperkalemia for the time being. 5. Acidosis secondary to gastrointestinal loss and renal failure, recover. Discontinue bicarb drip. Time spend for patient Care face to face , ordering and discussing the plan of care with staff 35 min ALLIE Voice ID: [id number] Report ID: [id number] MARIEL
[2020-06-29] MEDS: ONDANSETRON 4 MG/2 ML VIAL IV PRN (17:24)
[2020-06-29] MEDS ORDERED: MAGNESIUM SULFATE 1 gm IVPB 1 GM/100 ML BAG IV ONE (21:00)
[2020-06-30] MEDS: HYDROCODONE/APAP 7.5/325 MG TAB PO PRN ×4 (02:41→22:11)
[2020-06-30 05:18] LABS: Absolute Lymphocytes (CBC) 1.2 K/uL (0.7-4.9); Basophils % 0.1 % (0-1.3); Hematocrit 44.6 % (39.6-49.0); Lymphocytes % 9.4 % (15.3-44.8); MPV 9.2 fL (7.6-11.3); RBC Red Blood Cell Count 4.64 M/uL (4.33-5.43)
[2020-06-30 05:36] LABS: Albumin 3.7 g/dL (3.4-5.0); Bilirubin Total 0.4 mg/dL (0.2-1.0); Magnesium 1.6 mg/dL (1.8-2.4); Phosphorus 2.7 mg/dL (2.5-4.9); Potassium 5.5 mmol/L (3.5-5.1)
[2020-06-30] MEDS: PANTOPRAZOLE 40MG TABLET PO SCH (06:01)
[2020-06-30] MEDS: dexAMETHasone 4 MG/ML VIAL IV SCH ×4 (06:01→23:53)
[2020-06-30] MEDS ORDERED: MAGNESIUM SULFATE 1 gm IVPB 1 GM/100 ML BAG IV ONE (09:00)
[2020-06-30] MEDS: AMOX/K CLAV 500 MG TAB PO SCH ×2 (09:17→20:35)
[2020-06-30] MEDS: HEPARIN 5000 UNIT/ML 1 ML VIAL SQ SCH ×2 (09:17→20:35)
[2020-06-30] MEDS: D5 0.45 NS 1,000 ML IV SCH (09:18)
[2020-06-30] MEDS ORDERED: GLUCAGON 1 MG/VIAL IM PRN (09:54)
[2020-06-30] MEDS ORDERED: D50W 25 GM/50 ML SYRINGE/VIAL IV PRN (09:54)
[2020-06-30] MEDS ORDERED: INSULIN -REGULAR HUMAN 50 UNIT/0.5 ML ML IV ONE (10:15)
[2020-06-30] MEDS ORDERED: Magnesium Sulfate 2gm IVPB 2 G/50 ML BAG IV ONE (11:00)
[2020-06-30] MEDS ORDERED: FUROSEMIDE 40 MG/4 ML VIAL IV ONE (11:00)
[2020-06-30] MEDS ORDERED: ALBUTEROL 2.5 MG/3 ML NEB SOL NEB ONE (11:00)
[2020-06-30] MEDS ORDERED: NA CHLORIDE 0.9% 1,000 ML IV ONE (11:00)
[2020-06-30] MEDS ORDERED: D50W 25 GM/50 ML SYRINGE/VIAL IV ONE (11:00)
--- NOTE | 2020-06-30 11:12 | P.PN ---
Subjective Date of Service: 06/30/20 Primary Care Provider: Dr. Shaw Chief Complaint: Right flank pain, fatigue Subjective: Improving, Doing well Physical Examination - Vital Signs Temperature: 97.1 F Blood Pressure: 134/63 Pulse: 103 Respirations: 18 Pulse Ox (%): 96 - Physical Exam General: Alert, In no apparent distress, Oriented x3, Cooperative HEENT: Atraumatic Neck: Supple Respiratory: Clear to auscultation bilaterally, Normal air movement Cardiovascular: Normal pulses, Regular rate/rhythm Gastrointestinal: Normal bowel sounds, Soft and benign, Non-distended Neurological: Normal speech, Normal strength at 5/5 x4 extr, Normal tone, Normal affect - Studies Medications List Reviewed: Yes Assessment & Plan Discharge Plan: Home Plan to discharge in: 24 Hours Physician Review Additional Text: Impression: Shortness of breath, right flank pain, chills secondary to sepsis likely related to right lower lobe pneumonia complicated with acute renal failure Acute renal failure likely volume depletion related to sepsis and medication- lisinopril/hydrochlorothiazide and noted hyperkalemia Decrease cortisol suspect adrenal insufficiency History of hypertension Increased cerumen to the left ear Plan: Shortness of breath, right flank pain, chills secondary to sepsis likely related to right lower lobe pneumonia complicated with acute renal failure: Patient has done well. Continue oral antibiotic therapy. Chest x-ray shows resolution. Case discussed with nephrology. Hyperkalemia to be treated. Lab for possible RTA sent. Await ACTH test. Anticipate an improvement over the next day. Encourage ambulation. Possible discharge tomorrow. Acute renal failure likely volume depletion related to sepsis and medication- lisinopril/hydrochlorothiazide and noted hyperkalemia: Possible RTA. Potassium to be treated. Other urinary electrolytes to be obtained. Case discussed with nephrology. Continue to monitor closely. Decrease cortisol suspect adrenal insufficiency: Patient to have ACTH test done tomorrow. If abnormal patient will require steroids and Florinef. History of hypertension: Continue to whole medication Increased cerumen to the left ear: Patient reports improvement with cerumen removed. Will recommend ENT evaluation as an outpatient to continue to monitor and address. Time Spent Managing Pts Care (In Minutes): 55
--- NOTE | 2020-06-30 11:56 | PN ---
Date of Progress Note: 06/30/2020 Subjective: The patient was admitted with acute kidney injury secondary to prerenal, secondary to gastrointestinal loss, secondary to diarrhea. The patient had severe hyperkalemia. After hydration, kidney function close to normalized, but he persistently has hyperkalemia. The patient has history of nephrolithiasis. Physical Examination: General: When I saw the patient; the patient is lying in bed, comfortable. Vital Signs: Blood pressure 134/63, pulse of 100. The patient has good urine output of 2100. Chest: Clear to auscultation. Heart: S1, S2. Regular. Abdomen: Soft, nontender. Extremity: No edema. Neurological: Alert and oriented x3. Nonfocal. Laboratory Data: WBC 12.6, H and H 14.9/44.6. Sodium 137, potassium 5.5, bicarb 23, BUN 34, creatinine 1.6, calcium 8.7, phosphorus 2.7, magnesium 1.6, cortisol level of 2.2. Urinalysis; pH of 5.5, P/C ratio 0.2. Assessment And Plan: 1. Acute kidney injury, multifactorial, secondary to prerenal superimposed with FARRAH inhibitor and hydrochlorothiazide, recovered. I am going to resume IV fluid and we will monitor. 2. Hyperkalemia with the presence of the severe acidosis and history of nephrolithiasis or differential is between RTA/adrenal insufficiency, supported with low cortisol. a. I am going to go ahead and send for urine electrolytes. b. Continue IV fluid. c. The patient again to have a cortisol stimulation test tomorrow. 3. Acidosis secondary to renal failure, GI loss, resolved. We will monitor. 4. Hypomagnesemia. We will supplement. Time spend for patient Care face to face , ordering and discussing the plan of care with staff 35 min ALLIE Voice ID: [id number] Report ID: [id number] MARIEL
[2020-06-30 12:16] LABS: Urine Appearance CLEAR; Urine Bilirubin NEGATIVE (NEG); Urine Blood NEGATIVE (NEG); Urine Color YELLOW; Urine Glucose 3+ (NEG); Urine Protein NEGATIVE (NEG); Urine Specific Gravity 1.015 (1.005-1.030); Urine Urobilinogen 0.2 mg/dL (0.2-1.0)
[2020-06-30 12:18] LABS: Urine Microscopic Reflex NO UMIC
[2020-07-01] MEDS: D5 0.45 NS 1,000 ML IV SCH (00:15)
[2020-07-01] MEDS: ACETAMINOPHEN 500 MG TAB PO PRN (03:37)
[2020-07-01 04:44] LABS: Albumin 3.3 g/dL (3.4-5.0); Magnesium 1.9 mg/dL (1.8-2.4); Phosphorus 2.7 mg/dL (2.5-4.9); Potassium 4.7 mmol/L (3.5-5.1)
[2020-07-01] MEDS: dexAMETHasone 4 MG/ML VIAL IV SCH ×2 (05:14→11:39)
[2020-07-01] MEDS: PANTOPRAZOLE 40MG TABLET PO SCH (05:14)
[2020-07-01] MEDS ORDERED: COSYNTROPIN 0.25 MG VIAL IV SCH (08:00)
[2020-07-01] MEDS: HEPARIN 5000 UNIT/ML 1 ML VIAL SQ SCH (09:34)
[2020-07-01] MEDS: AMOX/K CLAV 500 MG TAB PO SCH (09:34)
[2020-07-01] MEDS: HYDROCODONE/APAP 7.5/325 MG TAB PO PRN (09:42)
[2020-07-01 10:39] VITALS: O2SAT 96
--- NOTE | 2020-07-01 11:40 | P.PN ---
Subjective Date of Service: 07/01/20 Primary Care Provider: Dr. Shaw Chief Complaint: Right flank pain, fatigue Subjective: Improving, Doing well Physical Examination - Vital Signs Temperature: 97 F Blood Pressure: 182/83 Pulse: 58 Respirations: 20 Pulse Ox (%): 96 - Physical Exam General: Alert, In no apparent distress, Cooperative HEENT: Atraumatic Neck: Supple Respiratory: Clear to auscultation bilaterally, Normal air movement Cardiovascular: Normal pulses, Regular rate/rhythm Gastrointestinal: Normal bowel sounds, Soft and benign, Non-distended Neurological: Normal speech, Normal strength at 5/5 x4 extr, Normal tone - Studies Medications List Reviewed: Yes Assessment & Plan Discharge Plan: Home Plan to discharge in: 24 Hours Physician Review Additional Text: Impression: Shortness of breath, right flank pain, chills secondary to sepsis likely related to right lower lobe pneumonia complicated with acute renal failure Acute renal failure likely volume depletion related to sepsis and medication- lisinopril/hydrochlorothiazide and noted hyperkalemia Decrease cortisol suspect adrenal insufficiency History of hypertension Increased cerumen to the left ear Plan: Shortness of breath, right flank pain, chills secondary to sepsis likely related to right lower lobe pneumonia complicated with acute renal failure: Continue oral antibiotics. Await results of ACTH stimulation test. Initial baseline cortisol low. Suspect adrenal insufficiency. Will discuss further with pulmonology and nephrology. Acute renal failure likely volume depletion related to sepsis and medication- lisinopril/hydrochlorothiazide and noted hyperkalemia: Possible RTA. Potassium to be treated. Other urinary electrolytes to be obtained. Case discussed with nephrology. Continue to monitor closely. Decrease cortisol suspect adrenal insufficiency: ACTH test pending at this time. Will discuss further with pulmonology and nephrology History of hypertension: Continue to whole medication Increased cerumen to the left ear: Patient reports improvement with cerumen removed. Will recommend ENT evaluation as an outpatient to continue to monitor and address. Time Spent Managing Pts Care (In Minutes): 55
--- NOTE | 2020-07-01 12:49 | P.PN ---
Subjective Date of Service: 07/01/20 Primary Care Provider: Dr. Shaw Chief Complaint: Low cortisol level Subjective: Improving (Patient is doing much better no complaints or is serum cortisol level is lobe a CTA stimulation responses nevertheless is normal) Review of Systems Unremarkable Physical Examination - Vital Signs Temperature: 97 F Blood Pressure: 182/83 Pulse: 58 Respirations: 20 Pulse Ox (%): 96 - Physical Exam General: Alert, Oriented x3 Respiratory: Clear to auscultation bilaterally Cardiovascular: No edema, Normal S1 S2 - Studies Medications List Reviewed: Yes Assessment & Plan - Problems (Diagnosis) (1) Renal failure Current Visit: Yes Status: Acute Plan: Patient's renal function is significantly improved was likely prerenal a renal ultrasound is unremarkable (2) Low serum cortisol level Current Visit: Yes Status: Acute Plan: Patient has losartan baseline cortisol level ever is a CTA stimulation test is normal doubt primary adrenal insufficiency the very rare to have a secondary adrenal insufficiency may be related to his underlying infection discharge home with 10 mg of prednisone with or fludrocortisone in his blood pressure is elevated follow with me in 2 weeks ACTH level is pending presume is blood pressure medication
[2020-07-01] MEDS: TRAMADOL HCL 50 MG TAB PO PRN (14:23)
--- NOTE | 2020-07-01 15:30 | P.DS ---
Admission Date: 06/27/20 Discharge Date: 07/01/20 Primary Care Provider: Dr. Shaw Disposition: ROUTINE DISCHARGE Discharge Condition: GOOD Reason for Admission: Low cortisol level Consultations: Nephrology-Dr. Celaya Pulmonary-Dr. Matson Procedures: Ct Scan: FINDINGS: No dense consolidation or suspicious mass lesion identifiable. In the posterolateral right lung base there is a mild bronchiectasis pattern. There is opacification of the dilated bronchi. In the surrounding parenchyma there is patchy alveolar opacification. Bronchial wall thickening is seen. No similar findings elsewhere. No pneumothorax or pleural effusion. No chest wall mass or abnormal axillary lymphadenopathy seen. Mediastinal and hilar regions show no mass or lymphadenopathy. No significant cardiac finding. The liver, spleen and pancreas show no significant findings. Gallbladder and biliary tree are normal. Symmetric renal function is seen with no hydronephrosis, mass or other significant finding. No adrenal abnormalities. No urinary bladder abnormalities. No dilated bowel loops or focal ball bowel wall thickening. No free air, free fluid or inflammatory stranding. Sigmoid diverticulosis present without diverticulitis. Appendix is normal. No mass or bulky lymphadenopathy. A small fat only umbilical hernia is present. Minimal fat only left inguinal hernia. No acute bone or vascular finding. Patient has a prominent facet joint degenerative change in the lower lumbar spine. IMPRESSION: Posterolateral right lung base bronchiectasis with bronchitis findings. There is some patchy airspace disease in the same region. Viral and early bacterial pneumonias would both be possible. CT abdomen and pelvis imaging shows no emergent finding. ECHO: EF 73% LEFT VENTRICULAR WALL MOTION: NORMAL. DOPPLER/COLOR FLOW: NORMAL. COMMENTS: TECHNICALLY DIFFICULT STUDY. GROSSLY NORMAL LEFT VENTRICULAR SIZE AND FUNCTION. NO VEGETATION. NO EFFUSION. Renal US: FINDINGS: The right kidney measures 13 cm with an increased echotexture. The left kidney measures 13 cm with an increased echotexture. A 8 millimeter cyst Hydronephrosis is not seen. No gross abnormality of bladder is seen Cholelithiasis IMPRESSION: Mildly increased renal echotexture consistent with parenchymal disease CXR: FINDINGS: The lungs are grossly clear. The heart is normal in size. No displaced fractures. Medical Problem List: Shortness of breath, right flank pain, chills secondary to sepsis likely related to right lower lobe pneumonia complicated with acute renal failure Acute renal failure likely volume depletion related to sepsis and medication- lisinopril/hydrochlorothiazide and noted hyperkalemia Decrease cortisol suspect adrenal insufficiency History of hypertension Increased cerumen to the left ear Brief History of Present Illness: 59-year-old male with history of hypertension. Patient presented with right flank pain. Patient also reports other symptoms including fatigue, chills, fever and tremors. Patient reports that he has been feeling ill since June 06. Since that time he has been feeling extremely tired. He reported a cough at that time. Some shortness of breath noted. Patient reports chronic diarrhea. Over the past several days he has been not taking good oral intake. Patient reports right flank pain that radiates to the right chest wall. As mentioned above shortness of breath noted. Patient came to the ER for further evaluation. In the ER patient was evaluated. Patient was hypotensive with a blood pressure of 82/66. He was afebrile. Oxygen saturations around 100%. On lab white count 12.3, hemoglobin 15.6. Platelet count 287. Sodium 130, potassium 5.7. BUN greater than 150. CO2 of 9. Creatinine 4.53. With a GFR of 13. D-dimer 257. INR 1.15. Troponin less than 0.02. Magnesium low at 0.6. Pro calcitonin pending. Lactic acid pending. BNP 287. 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 Possible early viral versus bacterial pneumonia. Abdominal exam portion unremarkable. Patient was given IV sepsis bolus in the emergency room. Blood, urine, sputum cultures obtained. Patient admitted for further evaluation. When I saw the patient ER, patient appeared dehydrated. Patient appear septic at this time. Patient overall stable. Patient takes hydrochlorothiazide, lisinopril for blood pressure. Patient also smokes. Hospital Course: Patient presented with shortness of breath, right flank pain and chills secondary to sepsis. This was related to right lower lobe pneumonia complicated with acute renal failure. During the course of his stay the patient did well with IV fluids and antibiotic therapy. Patient found to have adrenal insufficiency during the course of his stay. Patient was seen by nephrology and pulmonology. At discharge ACTH test performed. ACTH level pending at discharge. Case discussed at length with pulmonology and nephrology. At discharge patient will continue with prednisone 10 mg daily. This is to be monitored closely by pulmonology. Pulmonology will follow up on test to determine how all long the patient will be on prednisone. At discharge patient will also continue with Augmentin 500 mg 1 pill twice daily for 5 more days. Recommend to recheck chest x-ray in 2-4 weeks to monitor resolution. Recommend follow up with pulmonology within 1 week to follow up this hospitalization. Multiple lab still pending to evaluate renal disease. Patient will follow up with Nephrology to further address. Recommend follow up with nephrology in 2-3 days with repeat lab-BMP. Recommend no further use of nonsteroidal anti- inflammatories. Future medications would to be renally dose. Recommend to discontinue lisinopril hydrochlorothiazide at discharge. Patient with history of hypertension. Lisinopril hydrochlorothiazide was discontinued due to his acute renal failure. At discharge blood pressure well controlled off medication. Continue to monitor blood pressure off medication. Recommend to maintain blood pressure less than 150/80. If blood pressure remains elevated he can follow up with nephrology and pulmonology to further consider medication. Patient had increase she remained to the left ear. Some cerumen removed. Recommend follow up with ENT as an outpatient to further address. Vital Signs/Physical Exam: Temp Pulse Resp BP Pulse Ox 97 F 58 20 182/83 H 96 07/01/20 12:49 07/01/20 12:49 07/01/20 14:23 07/01/20 12:49 07/01/20 14:23 General: Alert, In no apparent distress, Oriented x3, Cooperative HEENT: Atraumatic Neck: Supple Respiratory: Clear to auscultation bilaterally, Normal air movement Cardiovascular: Normal pulses, Regular rate/rhythm Gastrointestinal: Normal bowel sounds, Soft and benign, Non-distended Neurological: Normal speech, Normal strength at 5/5 x4 extr, Normal tone, Normal affect Laboratory Data at Discharge: WBC 12.6 K/uL (4.3-10.9) H D 06/30/20 04:43 Hgb 14.9 g/dL (13.6-17.9) 06/30/20 04:43 Hct 44.6 % (39.6-49.0) 06/30/20 04:43 Plt Count 279 K/uL (152-406) 06/30/20 04:43 PT 13.5 SECONDS (9.5-12.5) H 06/27/20 15:15 INR 1.15 06/27/20 15:15 Sodium 137 mmol/L (136-145) 07/01/20 03:37 Potassium 4.7 mmol/L (3.5-5.1) 07/01/20 03:37 BUN 29 mg/dL (7-18) H 07/01/20 03:37 Creatinine 1.33 mg/dL (0.55-1.3) H 07/01/20 03:37 Glucose 142 mg/dL (74-106) H 07/01/20 03:37 Uric Acid 8.1 mg/dL (3.5-7.2) H 06/28/20 05:10 Phosphorus 2.7 mg/dL (2.5-4.9) 07/01/20 03:37 Magnesium 1.9 mg/dL (1.8-2.4) 07/01/20 03:37 Total Bilirubin 0.4 mg/dL (0.2-1.0) 06/30/20 04:43 AST 27 U/L (15-37) 06/30/20 04:43 ALT 54 U/L (12-78) 06/30/20 04:43 Alkaline Phosphatase 93 U/L (45-117) 06/30/20 04:43 Home Medications: Amox/Clavulanate [Augmentin 500-125 mg Tab*] 500 mg PO BID #5 tab 07/01/20 predniSONE [Deltasone*] 10 mg PO DAILY #30 tab 07/01/20 traMADol HCL [Ultram*] 50 mg PO TID PRN #10 tab 07/01/20 New Medications: Amox/Clavulanate [Augmentin 500-125 mg Tab*] 500 mg PO BID #5 tab predniSONE [Deltasone*] 10 mg PO DAILY #30 tab traMADol HCL [Ultram*] 50 mg PO TID PRN #10 tab PRN Reason: PAIN Patient Discharge Instructions: Patient presented with shortness of breath, right flank pain and chills secondary to sepsis. This was related to right lower lobe pneumonia complicated with acute renal failure. During the course of his stay the patient did well with IV fluids and antibiotic therapy. Patient found to have adrenal insufficiency during the course of his stay. Patient was seen by nephrology and pulmonology. At discharge ACTH test performed. ACTH level pending at discharge. Case discussed at length with pulmonology and nephro logy. At discharge patient will continue with prednisone 10 mg daily. This is to be monitored closely by pulmonology. Pulmonology will follow up on test to determine how all long the patient will be on prednisone. At discharge patient will also continue with Augmentin 500 mg 1 pill twice daily for 5 more days. Recommend to recheck chest x-ray in 2-4 weeks to monitor resolution. Recommend follow up with pulmonology within 1 week to follow up this hospitalization. Multiple lab still pending to evaluate renal disease. Patient will follow up with Nephrology to further address. Recommend follow up with nephrology in 2-3 days with repeat lab-BMP. Recommend no further use of nonsteroidal anti- inflammatories. Future medications would to be renally dose. Recommend to discontinue lisinopril hydrochlorothiazide at discharge. Patient with history of hypertension. Lisinopril hydrochlorothiazide was discontinued due to his acute renal failure. At discharge blood pressure well controlled off medication. Continue to monitor blood pressure off medication. Recommend to maintain blood pressure less than 150/80. If blood pressure remains elevated he can follow up with nephrology and pulmonology to further consider medication. Patient had increase she remained to the left ear. Some cerumen removed. Recommend follow up with ENT as an outpatient to further address. Diet: AHA Activity: Ad shahrzad Time spent managing pt's care (in minutes): 55
[2020-07-01 17:26] VITALS: BP 164/80; TEMP 98
--- NOTE | 2020-07-02 00:03 | PN ---
Date of Progress Note: 07/01/2020 Chief Complaint: Acute kidney injury secondary to prerenal azotemia secondary to gastrointestinal lo sses with diarrhea. History Of Present Illness: Patient has severe hyperkalemia of dehydration. Kidney function normali zed and hyperkalemia was persistent. Patient has history of nephrolithiasis and workup was initiated for adrenal insufficiency. Patient will take prednisone and he will maintain low-potassium diet. Review of Systems: Denies new complaints. Physical Examination: Lungs: Diminished breath sounds at bases. Heart: S1, S2. Abdomen: Soft, benign. Extremities: No edema. Laboratory Data: Sodium 137, potassium 5.5, bicarbonate 23, BUN 34, creatinine 1.6, calcium 8.7, dorcas sphorus 2.7. Today, lab work showed sodium 137, potassium 4.7, chloride 104, CO2 of 26, BUN 29, crea tinine 1.33, glucose 142, calcium 8.4, magnesium 1.9, phosphorus 2.7. Impression And Plan: 1.Acute kidney injury. Renal function is improving in response to IV fluids. Continue adequate hyd ration by mouth. Patient is tolerating p.o. intake. 2.Hyperkalemia in the presence of severe acidosis and history of nephrolithiasis. The differential diagnosis includes renal tubular acidosis and adrenal insufficiency. Patient had cosyntropin test do ne and he will continue prednisone. 3.Acidosis secondary to renal failure and gastrointestinal loss, resolved. Monitor. 4.Hypomagnesemia. Patient will continue supplementation. Monitor magnesium level and adjust treatm ent according to lab result. EB/MODL Voice ID: [id number] Report ID: [id number]
[2020-07-02 17:11] LABS: HIV AG/AB 4TH GEN Non-reactive (Non-reactive)
[2020-07-03 17:53] LABS: Hepatitis C Virus RNA (PCR)log <1.18 log IU/mL
[2020-07-04 13:58] LABS: HBsAG Nonreactive (Nonreactive)
== END 2020-07-01 17:03 | disposition home or self-care (01) | DRG 871 ==
LOC: ER 12:50 → ERHOLD 17:51 → 2ND 06-29 11:59
PROVIDERS: ADMIT Family Medicine; ATTEND Family Medicine
DX: A41.9 Sepsis, unspecified organism (principal); J18.9 Pneumonia, unspecified organism; N17.9 Acute kidney failure, unspecified; E87.2 Acidosis; E27.40 Unspecified adrenocortical insufficiency; R65.20 Severe sepsis without septic shock; I10 Essential (primary) hypertension; E86.0 Dehydration; F17.210 Nicotine dependence, cigarettes, uncomplicated; E86.9 Volume depletion, unspecified; T46.4X5A Adverse effect of angiotensin-converting-enzyme inhibitors, initial encounter; T50.2X5A Adverse effect of carbonic-anhydrase inhibitors, benzothiadiazides and other diuretics, initial encounter; E83.51 Hypocalcemia; E83.42 Hypomagnesemia; E87.5 Hyperkalemia; H61.22 Impacted cerumen, left ear; E83.39 Other disorders of phosphorus metabolism; R06.02 Shortness of breath; R05 Cough; Z79.899 Other long term (current) drug therapy; Z20.828 Contact with and (suspected) exposure to other viral communicable diseases
CPT/HCPCS: 36415; 71045; 71046; 71250; 74176; 76770; 80048; 80053; 80069; 80076; 81003; 82024; 82435; 82533; 82550; 82570; 82728; 82805; 83520; 83605; 83735; 83880; 83930; 83935; 83970; 84132; 84145; 84156; 84300; 84439; 84443; 84484; 84550; 85025; 85379; 85610; 86021; 86038; 86140; 86160; 86225; 86317; 86430; 86704; 86706; 87040; 87340; 87389; 87522; 93005; 93306; 94640; 94760; 96361; 96365; 96366; 96375; 99285; J0456; J0610; J0696; J0834; J1644; J1940; J2405; J3010; J3475; J7030; J7040; J7050; J7799; U0002; U0003